=== PATIENT | female | born 1970 | race Caucasian/White ===

== ENCOUNTER 2018-01-22 23:22 | Emergency (ER) | payer OTHER, MEDICAID ==
[2018-01-23] MEDS: DEXAMETHASONE 10 MG/ML 1 ML INJ IM (00:56)
== END 2018-01-23 01:18 | disposition home or self-care (01) ==
LOC: FTE 23:22
DX: R22.43 Localized swelling, mass and lump, lower limb, bilateral (principal); R22.33 Localized swelling, mass and lump, upper limb, bilateral; I10 Essential (primary) hypertension; Z85.3 Personal history of malignant neoplasm of breast
CPT/HCPCS: 96372; 99284-25

== ENCOUNTER 2018-09-13 18:29 | Emergency (ER) | payer MEDICAID ==
[2018-09-13 20:08] LABS: ADD MAN DIFF? NO
[2018-09-13 20:13] LABS: WHITE BLOOD COUNT 9.1 10^3/ul (4.8-10.8)
[2018-09-13 20:13] LABS: BASOPHIL # 0.1 10^3/ul (0.0-0.1); BASOPHILS % 0.7 % (0.0-2.0); EOSINOPHILS # 0.1 10^3/ul (0.0-0.5); EOSINOPHILS % 0.9 % (0.0-7.0); HEMOGLOBIN 12.5 g/dl (12.0-16.0); LYMPHOCYTES % 43.9 % (15.0-51.0); MEAN CORPUSCULAR HEMOGLOBIN 27.9 pg (29.0-33.0); MEAN CORPUSCULAR HGB CONC 32.9 g/dl (32.0-37.0); MEAN CORPUSCULAR VOLUME 84.8 fl (82.0-101.0); MEAN PLATELET VOLUME 10.2 fl (7.4-10.4); MONOCYTE # 0.5 10^3/ul (0.3-0.9); MONOCYTES % 5.9 % (0.0-11.0); NEUTROPHIL # 4.4 10^3/ul (1.6-7.5); NEUTROPHILS % 48.3 % (39.0-77.0); PLATELET COUNT 319 10^3/UL (140-415); RED BLOOD COUNT 4.48 10^6/ul (4.20-5.40); RED CELL DISTRIBUTION WIDTH 12.4 % (11.5-14.5)
[2018-09-13 20:30] LABS: ANION GAP 10 (5-13); BLOOD UREA NITROGEN 16 mg/dl (7-20); CALCIUM 10.3 mg/dl (8.4-10.2); CARBON DIOXIDE 26 mmol/L (21-31); CHLORIDE 105 mmol/L (97-110); CREATININE 0.62 mg/dl (0.44-1.00); Estimated GFR > 60 mL/min (>60); GLUCOSE 99 mg/dl (70-220); POTASSIUM 4.3 mmol/L (3.5-5.1); SODIUM 141 mmol/L (135-144)
[2018-09-13 20:41] LABS: TROPONIN-I < 0.012 ng/ml (0.000-0.120)
== END 2018-09-13 21:26 | disposition home or self-care (01) ==
LOC: FTE 18:29
DX: R06.02 Shortness of breath (principal); I10 Essential (primary) hypertension; Z85.3 Personal history of malignant neoplasm of breast
CPT/HCPCS: 36415; 71045; 80048; 84484; 85025; 99285-25

== ENCOUNTER 2018-10-23 20:29 | Emergency (ER) | payer MEDICAID ==
[2018-10-23 20:58] LABS: URINE BLOOD (Dip) POC Trace-lysed (NEGATIVE); URINE GLUCOSE (Dip) POC Negative (NEGATIVE); URINE KETONES (Dip) POC Negative (NEGATIVE); URINE LEUKOCYTE EST (Dip) POC Negative (NEGATIVE); URINE NITRITE (Dip) POC Negative (NEGATIVE); URINE TOTAL PROTEIN POC Negative (NEGATIVE)
[2018-10-23 20:58] LABS: URINE PH (Dip) POC 5.5 (5.0-8.5)
[2018-10-23] MEDS: LORAZEPAM 1 MG TAB PO (21:27)
[2018-11-02 18:57] LABS: URINE PH (Dip) POC 5.5 (5.0-8.5)
[2018-11-02 18:57] LABS: URINE BLOOD (Dip) POC Trace-lysed (NEGATIVE); URINE GLUCOSE (Dip) POC Negative (NEGATIVE); URINE KETONES (Dip) POC Negative (NEGATIVE); URINE LEUKOCYTE EST (Dip) POC Negative (NEGATIVE); URINE NITRITE (Dip) POC Negative (NEGATIVE); URINE TOTAL PROTEIN POC Negative (NEGATIVE)
== END 2018-10-23 22:25 | disposition home or self-care (01) ==
LOC: FTE 20:29
DX: F41.9 Anxiety disorder, unspecified (principal); F41.0 Panic disorder [episodic paroxysmal anxiety]; I10 Essential (primary) hypertension; Z85.3 Personal history of malignant neoplasm of breast
CPT/HCPCS: 81003; 81025; 99283